=== PATIENT | female | born 1980 | race Caucasian/White ===

== ENCOUNTER 2018-01-10 02:39 | Emergency (ER) | payer BC, OTHER ==
[2018-01-10] MEDS: FAMOTIDINE 20 MG TAB PO (03:37)
[2018-01-10] MEDS: LORATADINE 10 MG TAB PO (03:37)
== END 2018-01-10 04:09 | disposition home or self-care (01) ==
LOC: FTE 02:39
DX: O99.711 Diseases of the skin and subcutaneous tissue complicating pregnancy, first trimester (principal); L50.9 Urticaria, unspecified; O99.511 Diseases of the respiratory system complicating pregnancy, first trimester; J45.909 Unspecified asthma, uncomplicated; Z34.91 Encounter for supervision of normal pregnancy, unspecified, first trimester; Z3A.14 14 weeks gestation of pregnancy
CPT/HCPCS: 99282

== ENCOUNTER 2018-07-13 14:02 | Inpatient (IN) | payer BC ==
[2018-07-13] MEDS ORDERED: IBUPROFEN 600 MG TAB PO (14:30)
[2018-07-13] MEDS ORDERED: CARBOPROST 250 MCG INJ IM ×2 (14:30→22:30)
[2018-07-13] MEDS ORDERED: METHYLERGONOVINE 0.2 MG INJ IM ×2 (14:30→22:30)
[2018-07-13] MEDS ORDERED: MISOPROSTOL 200 MCG TAB PR ×2 (14:30→22:30)
[2018-07-13] MEDS ORDERED: OXYCODONE/ACETAMINOPHEN (5/325) TAB PO (14:30)
[2018-07-13] MEDS ORDERED: OXYTOCIN 30 UNITS/LR 500 ML IV ×2 (14:30→22:30)
[2018-07-13 14:32] LABS: ADD MAN DIFF? NO
[2018-07-13 14:34] LABS: WHITE BLOOD COUNT 12.6 10^3/ul (4.8-10.8)
[2018-07-13 14:34] LABS: BASOPHILS % 0.2 % (0.0-2.0); EOSINOPHILS % 0.2 % (0.0-7.0); HEMATOCRIT 38.8 % (37.0-47.0); HEMOGLOBIN 12.6 g/dl (12.0-16.0); LYMPHOCYTES # 2.2 10^3/ul (0.8-2.9); LYMPHOCYTES % 17.5 % (15.0-51.0); MEAN CORPUSCULAR HEMOGLOBIN 29.7 pg (29.0-33.0); MEAN CORPUSCULAR HGB CONC 32.5 g/dl (32.0-37.0); MEAN CORPUSCULAR VOLUME 91.5 fl (82.0-101.0); MEAN PLATELET VOLUME 12.9 fl (7.4-10.4); MONOCYTE # 0.8 10^3/ul (0.3-0.9); MONOCYTES % 6.7 % (0.0-11.0); NEUTROPHIL # 9.4 10^3/ul (1.6-7.5); NEUTROPHILS % 74.8 % (39.0-77.0); PLATELET COUNT 190 10^3/UL (140-415); RED BLOOD COUNT 4.24 10^6/ul (4.20-5.40)
[2018-07-13] MEDS ORDERED: FENTAnyl 2MCG/ML-ROPIV 0.2% 100 ML (15:50)
[2018-07-13] MEDS ORDERED: ONDANSETRON 4 MG INJ IV (16:00)
[2018-07-13] MEDS ORDERED: NALOXONE (0.4 MG/ML) INJ IV (16:00)
[2018-07-13] MEDS ORDERED: FENTAnyl 2MCG/ML-ROPIV 0.2% 100 ML BAG EPI (16:00)
[2018-07-13] MEDS ORDERED: DIPHENHYDRAMINE 50 MG INJ IV (16:00)
[2018-07-13] MEDS: LACTATED RINGER'S 1,000 ML IV ×2 (16:30→22:06)
[2018-07-13] MEDS: OXYTOCIN 30 UNITS/LR 500 ML IV ×3 (18:31→22:45)
[2018-07-13] MEDS: LIDOCAINE 1% (MPF) 30 ML INJ INJ (19:09)
[2018-07-13] MEDS: MINERAL OIL LIGHT 10 ML VIAL TOP (19:27)
[2018-07-13 22:09] LABS: RAPID PLASMA REAGIN NONREACTIVE (NR)
[2018-07-13] MEDS ORDERED: DIBUCAINE 1% 30 GM OINT TOP (22:30)
[2018-07-13] MEDS ORDERED: OXYCODONE/ASPIRIN (4.88/325) TAB PO (22:30)
[2018-07-13] MEDS ORDERED: NACL 0.9% 3 ML SYG IV (22:30)
[2018-07-13] MEDS: WITCH HAZEL/GLYCERIN PAD PR (22:46)
[2018-07-13] MEDS: LANOLIN HPA 1 PKT TOP (22:46)
[2018-07-13] MEDS: BENZOCAINE 20% 56 ML SPRAY TOP (22:46)
[2018-07-13] MEDS: IBUPROFEN 600 MG TAB PO (23:47)
[2018-07-14] MEDS: OXYCODONE/ASPIRIN (4.88/325) TAB PO (01:11)
[2018-07-14] MEDS: IBUPROFEN 600 MG TAB PO ×3 (05:52→18:19)
[2018-07-14 07:25] LABS: ADD MAN DIFF? NO
[2018-07-14 07:28] LABS: BASOPHILS % 0.1 % (0.0-2.0); EOSINOPHILS % 0.3 % (0.0-7.0); HEMATOCRIT 31.8 % (37.0-47.0); HEMOGLOBIN 10.2 g/dl (12.0-16.0); LYMPHOCYTES # 1.7 10^3/ul (0.8-2.9); LYMPHOCYTES % 12.4 % (15.0-51.0); MEAN CORPUSCULAR HEMOGLOBIN 29.6 pg (29.0-33.0); MEAN CORPUSCULAR HGB CONC 32.1 g/dl (32.0-37.0); MEAN CORPUSCULAR VOLUME 92.2 fl (82.0-101.0); MEAN PLATELET VOLUME 12.9 fl (7.4-10.4); MONOCYTE # 1.4 10^3/ul (0.3-0.9); MONOCYTES % 10.4 % (0.0-11.0); NEUTROPHIL # 10.3 10^3/ul (1.6-7.5); NEUTROPHILS % 76.2 % (39.0-77.0); PLATELET COUNT 152 10^3/UL (140-415); RED BLOOD COUNT 3.45 10^6/ul (4.20-5.40)
[2018-07-14 07:28] LABS: WHITE BLOOD COUNT 13.6 10^3/ul (4.8-10.8)
[2018-07-14 08:22] LABS: HEPATITIS B SURFACE ANTIGEN NEGATIVE (NEGATIVE)
[2018-07-14] MEDS: SENNA/DOCUSATE NA (8.6MG/50MG) TAB PO (10:18)
[2018-07-15] MEDS: IBUPROFEN 600 MG TAB PO ×3 (00:15→12:29)
[2018-07-15] MEDS: LANOLIN HPA 1 PKT TOP ×2 (12:28→14:05)
[2018-07-15] MEDS: DIPHTH/TET/ACEL PERTUSS (ADULT) 0.5 ML VIAL IM* (12:32)
[2018-07-15] MEDS: WITCH HAZEL/GLYCERIN PAD PR (14:06)
[2018-07-15] MEDS: BENZOCAINE 20% 56 ML SPRAY TOP (14:06)
== END 2018-07-15 16:45 | disposition home or self-care (01) | DRG 807 ==
LOC: OBT 14:02 → L-D 14:03 → OBT 14:04 → L-D 14:15 → PP1 21:26
PROVIDERS: Obstetrics & Gynecology
PROC: 10E0XZZ Delivery of Products of Conception, External Approach (ICD-10-PCS; principal; 2018-07-13)
PROC: 0HQ9XZZ Repair Perineum Skin, External Approach (ICD-10-PCS; 2018-07-13)
DX: O24.420 Gestational diabetes mellitus in childbirth, diet controlled (principal); Z37.0 Single live birth; O70.0 First degree perineal laceration during delivery; Z3A.39 39 weeks gestation of pregnancy; Z23 Encounter for immunization
CPT/HCPCS: 62322; 85025; 86592; 86850; 86900; 86901; 87340; 90715